=== PATIENT | female | born 1960 | race Caucasian/White ===

== ENCOUNTER 2021-06-15 11:03 | Emergency (ER) | payer MEDICAID ==
[2021-06-15 12:32] LABS: CORONAVIRUS COVID-19 NAA POSITIVE (NEGATIVE)
== END 2021-06-15 13:24 | disposition home or self-care (01) ==
LOC: JP.ED 11:03
DX: U07.1 COVID-19 (principal); J12.82 Pneumonia due to coronavirus disease 2019; Z79.82 Long term (current) use of aspirin
CPT/HCPCS: 0241U; 71045; 99285